=== PATIENT | female | born 1975 | race Two or more races ===

== ENCOUNTER 2017-10-16 12:57 | Emergency (ER) | payer OTHER ==
[~2017-10-16] VITALS: Ht 152.4 cm; Wt 49.9 kg
[2017-10-16 12:57] VITALS: BP 111/79
[2017-10-16] MEDS ORDERED: HYDROCODONE/APAP 5/325MG 1 EACH TABLET PO ONE (14:00)
[2017-10-16] MEDS ORDERED: IBUPROFEN 400 MG TABLET PO ONE (14:00)
[2017-10-16] MEDS ORDERED: HYDROCODONE/APAP 5/325MG 1 EACH TABLET ONE (14:03)
[2017-10-16] MEDS ORDERED: IBUPROFEN 400 MG TABLET ONE (14:03)
== END 2017-10-16 14:19 | disposition home or self-care (01) ==
LOC: ER 12:59
DX: K08.89 Other specified disorders of teeth and supporting structures (principal); K02.9 Dental caries, unspecified
CPT/HCPCS: 99283; A4606; Z7610

== ENCOUNTER 2018-08-14 09:05 | Emergency (ER) | payer OTHER ==
[~2018-08-14] VITALS: Ht 149.9 cm; Wt 50.8 kg
[2018-08-14 09:05] VITALS: BP 106/77
== END 2018-08-14 09:33 | disposition home or self-care (01) ==
LOC: ER 09:07
DX: F41.1 Generalized anxiety disorder (principal); F41.0 Panic disorder [episodic paroxysmal anxiety]
CPT/HCPCS: 99284; A4606; Z7610

== ENCOUNTER 2018-11-17 20:55 | Emergency (ER) | payer OTHER ==
[~2018-11-17] VITALS: Ht 149.9 cm; Wt 49.9 kg
[2018-11-17 21:44] VITALS: BP 105/73
[2018-11-17] MEDS ORDERED: IBUPROFEN 600 MG TABLET PO ONE ×2 (23:21→23:30)
== END 2018-11-17 23:27 | disposition home or self-care (01) ==
LOC: ER 20:58
DX: J06.9 Acute upper respiratory infection, unspecified (principal); Z98.890 Other specified postprocedural states
CPT/HCPCS: 99281; A4606; Z7610; Z7502

== ENCOUNTER 2019-11-19 23:17 | Emergency (ER) | payer OTHER ==
[~2019-11-19] VITALS: Ht 162.6 cm; Wt 64.4 kg
[2019-11-19 23:25] VITALS: BP 125/78
--- NOTE | 2019-11-19 23:35 | NUR ---
[employer] HELPER CLERICAL AT BEDSIDE FOR I&D OF RFA ABSCESS
--- NOTE | 2019-11-19 23:45 | NUR ---
Patient discharged to home in stable condition. Written and verbal after care instructions given. Patient verbalizes understanding of instruction. Pt ambulatory with a steady gait
== END 2019-11-19 23:46 | disposition home or self-care (01) ==
LOC: ER 23:22
DX: L02.413 Cutaneous abscess of right upper limb (principal); Z98.890 Other specified postprocedural states

== ENCOUNTER 2020-01-24 12:17 | Emergency (ER) | payer OTHER ==
[~2020-01-24] VITALS: Ht 137.2 cm; Wt 55.3 kg
[2020-01-24 12:35] VITALS: BP 105/70
== END 2020-01-24 12:47 | disposition home or self-care (01) ==
LOC: ER 12:20
DX: H66.93 Otitis media, unspecified, bilateral (principal); Z98.890 Other specified postprocedural states